=== PATIENT | female | born 1975 | race Caucasian/White ===

== ENCOUNTER → 2016-10-03 | Outpatient (CLI) | payer OTHER | LOC: BMCIMAGING 12:24 | PROVIDERS: ATTEND Family Medicine | DX: R07.1 Chest pain on breathing (principal); M41.25 Other idiopathic scoliosis, thoracolumbar region ==

== ENCOUNTER 2016-11-29 13:50 | Emergency (ER) | payer OTHER ==
--- NOTE | 2016-11-29 15:15 | EDPHY ---
H & P Time Seen by Provider: 11/29/16 15:07 HPI/ROS: CHIEF COMPLAINT: M1 Hold - "Disorganized thoughts, gravely disabled" HISTORY OF PRESENT ILLNESS: This patient is a 41 year old female with history of depression arriving today via EMS presenting with altered mental status. Over the past two weeks, coworkers noticed her behavior seemed to be odd, but she was able to do her usual work. Her sister, at bedside, states she called one week ago, and the patient seemed to be normal at that time. Her younger sister called a few days ago and she seemed to be conversing oddly, stating "everything has aligned" and that she can see the past and future. Yesterday evening, the patient was found by a neighbor "talking gibberish" and quite excitable. The patient's sister arrived this morning to assist. Per RN summary of EMS report, EMS crews restrained the patient on scene and administered 5mg Versed. An [facility] mental health worker on scene noted the patient seemed to exhibit disorganized thought and delusional behavior, similar to schizoaffective presentation. The patient's sister reports the patient has been attending various spiritual gatherings lately, and noted various pills "scattered" throughout the residence. Upon meeting the patient, she is alert, but not oriented to person, time, or place. She is unable to state her name, and states she believes she is in "[place], probably because of a ", "looking for blue corn in the grocery aisle", "the ugly hotel at [facility]", or "[employer]". She endorses headache and racing thoughts. She states she has been very sleep deprived. HPI obtained primarily from RN summary of EMS report and patient's sister at bedside, as patient is an unreliable historian at this time. REVIEW OF SYSTEMS: [Unable to assess, patient is unreliable historian] Constitutional: No fever, no chills Eyes: No visual changes ENT: No sore throat Respiratory: No cough, no shortness of breath Cardiac: No chest pain Gastrointestinal: No nausea, no vomiting, no abdominal pain Genitourinary: No hematuria, no dysuria Musculoskeletal: No leg pain or swelling Skin: No rash Neurological: No headache, no numbness, no weakness Psychiatric: Depression (Elenita Cho) Past Medical/Surgical History: Depression. Appendectomy. 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 Sister at bedside. (Elenita Cho) Physical Exam: General Appearance: Alert, not oriented to person, place, or time. Eyes: Pupils equal and round, no conjunctival pallor or injection ENT, Mouth: Mucous membranes moist Neck: Normal inspection Respiratory: Lungs are clear to auscultation Cardiovascular: Regular rate and rhythm Gastrointestinal: Abdomen is soft and non- tender Neurological: A&O, nonfocal Skin: Warm and dry, no rash Extremities: Nontender, no pedal edema Psychiatric: Abnormal affect, happy mood. (Elenita Cho) Constitutional: Initial Vital Signs Temperature (C) 36.9 C 11/29/16 14:00 Heart Rate 78 11/29/16 14:00 Respiratory Rate 14 11/29/16 14:00 Blood Pressure 118/78 11/29/16 14:00 O2 Sat (%) 94 11/29/16 14:00 O2 Delivery Mode Room Air Allergies/Adverse Reactions: amoxicillin [Amoxicillin] Allergy (Intermediate, Verified 08/05/13 07:53) Rash Home Medications: Medication Instructions Recorded Amphet Asp and D/Amphet [Adderall 10 mg PO DAILY@1300 11/29/16 10 MG (*)] Citalopram Hydrobromide 40 mg PO DAILY 11/29/16 [Citalopram HBr] Dextroamphetamine/Amphetamine 20 mg PO DAILY 11/29/16 [Adderall Xr 20 mg Capsule] Sertraline HCl [Zoloft 50mg (*)] 50 mg PO DAILY 11/29/16 buPROPion XL [Wellbutrin Xl] 300 mg PO DAILY 11/29/16 clonAZEPAM [Klonopin] 0.25 mg PO BID PRN 11/29/16 Medical Decision Making ED Course/Re-evaluation: This patient presents with acute psychosis. She is on M1 hold. Medically cleared for psychiatric evaluation after normal labs and normal CT scan of the brain. This patient became agitated and required Zyprexa 5 mg ODT at 6:30 p.m. 6:45 p.m.-this patient is in seen by mental health and felt appropriate for inpatient treatment of new onset acute psychosis and justin. (Elenita Cho) 11:00 p.m. the patient is resting. She is not combative. We are awaiting psychiatric placement. Care transferred to Dr. Kristan Maharaj. (Grey Hale) 3:00 a.m.- The patient has been stable throughout my shift. She has been accepted for inpatient hospitalization at [facility] by Dr. Mckee. The patient will be transferred at 6:30 a.m. when EMS is available. (Krystin Mahaarj) Differential Diagnosis: The differential diagnosis for the patient's altered mental status included but was not limited to hypoglycemia, infectious process, electrolyte abnormality, head injury, neurologic process, anemia, cardiac process, and intoxicants. (Elenita Cho) - Data Points Laboratory Results: Laboratory Results 11/29/16 14:16 11/29/16 14:16 Medications Given: Discontinued Medications Sodium Chloride (Ns) 500 mls @ 1,000 mls/hr IV ONCE ONE PRN Reason: Protocol Stop: 11/29/16 19:59 Last Admin: 11/29/16 19:31 Dose: 500 mls Lorazepam (Ativan Injection) 0.5 mg IVP EDNOW ONE Stop: 11/29/16 19:31 Last Admin: 11/29/16 19:31 Dose: 0.5 mg Lorazepam (Ativan Injection) 0.5 mg IVP EDNOW ONE Stop: 11/29/16 20:05 Last Admin: 11/29/16 19:50 Dose: 0.5 mg Olanzapine (Zyprexa Zydis) 5 mg PO EDNOW ONE Stop: 11/29/16 18:36 Last Admin: 11/29/16 18:36 Dose: 5 mg Departure - Departure Disposition: Other Psych, Not [facility] Clinical Impression: Acute psychosis, Jusitn Condition: Fair Referrals: Patient,NotPresent [Primary Care Provider] - As per Instructions Report Scribed for: Elenita Cho Report Scribed by: Radha Garcia Date of Report: 11/29/16 Time of Report: 15:14 Physician Review and Approval Statement: 11/29/16 15:14 Portions of this note were transcribed by a medical transcription supervisor. I personally performed a history, physical exam, medical decision making, and confirmed accuracy of information the transcribed note. (Elenita Cho)
[2016-11-29 15:17] LABS: % IMMATURE GRANULYOCYTES 0.3 % (0.0-1.1); ABSOLUTE IMMATURE GRANULOCYTES 0.02 10^3/uL (0.00-0.10); ADD DIFF? NO; ADD MORPH? NO; ADD SCAN? NO; ATYPICAL LYMPHOCYTE FLAG 10 (0-99); FRAGMENT RBC FLAG 0 (0-99); HEMATOCRIT 42.6 % (38.0-47.0); HEMOGLOBIN 15.2 g/dL (12.6-16.3); LEFT SHIFT FLG 0 (0-99); LIPEMIA HEMOLYSIS FLAG 90 (0-99); MEAN CELL HEMOGLOBIN 30.8 pg (27.9-34.1); MEAN CELL HEMOGLOBIN CONCENTR. 35.7 g/dL (32.4-36.7); MEAN CELL VOLUME 86.2 fL (81.5-99.8); MEAN PLATELET VOLUME 9.9 fL (8.7-11.7); PLATELET CLUMPS FLAG 10 (0-99); PLATELET COUNT 356 10^3/uL (150-400); RED BLOOD CELL COUNT 4.94 10^6/uL (4.18-5.33); RED CELL DISTRIBUTION WIDTH 12.2 % (11.5-15.2)
[2016-11-29 15:25] LABS: ANION GAP 16 mEq/L (8-16); CALCIUM 10.2 mg/dL (8.5-10.4); CARBON DIOXIDE 16 mEq/l (22-31); CHLORIDE 107 mEq/L (97-110); CREATININE 0.8 mg/dL (0.6-1.0); ETHANOL SERUM < 10 mg/dL (0-10); GLOMERULAR FILTRATION RATE > 60; GLUCOSE 74 mg/dL (70-100); SODIUM 139 mEq/L (134-144)
[2016-11-29 15:44] LABS: SALICYLATE < 1.0 mg/dL (2.0-20.0)
[2016-11-29] MEDS ORDERED: OLANZapine 5 MG TAB ONE (18:30)
[2016-11-29] MEDS ORDERED: OLANZapine DISINTEGR 5 MG TAB PO ONE (18:35)
[2016-11-29] MEDS ORDERED: LORazepam 2 MG/ML INJ ONE (19:22)
[2016-11-29] MEDS ORDERED: LORazepam 2 MG/ML INJ IVP ONE ×2 (19:30→20:04)
[2016-11-29] MEDS ORDERED: NS 500 ML IV ONE (19:30)
[2016-11-30 03:16] VITALS: RESP 18
[2016-11-30 06:19] VITALS: BP 104/61; PULSE 76; TEMP 97.9; O2SAT 94
== END 2016-11-30 06:50 ==
LOC: EDUNIT#
DX: F23 Brief psychotic disorder (principal); E86.9 Volume depletion, unspecified; F30.9 Manic episode, unspecified
CPT/HCPCS: 80305; 96374; G0480; J2060